=== PATIENT | male | born 1950 | race Caucasian/White ===

== ENCOUNTER 2017-12-02 20:03 | Inpatient (IN) | payer BC, OTHER ==
[~2017-12-02] VITALS: Ht 167.6 cm; Wt 83.9 kg
[2017-12-02] MEDS: CITRIC ACID/SODIUM CITRATE SOLN 15ML UDC PO SCH ×2 (13:00→17:00)
[~2017-12-02 20:03] MED LIST: INSULIN GLARGINE UD 100 UNITS/ML SYR SUBCUT SCH
[2017-12-02 21:00] LABS: BASOPHILS % 0.5 % (0.0-2.0); LYMPHOCYTES % 8.5 % (20.0-50.0); MEAN CORPUSCULAR HEMOGLOBIN 30.9 pg (28.0-32.0); MEAN CORPUSCULAR VOLUME 95.3 fL (80.0-94.0); MEAN PLATELET VOLUME 9.9 fl (7.4-10.4); MONOCYTES % 5.7 % (2.0-8.0); NEUTROPHILS % 84.3 % (40.0-76.0); PLATELET 196 x1000/uL (130-400); RED CELL DISTRIBUTION WIDTH 15.7 % (11.6-14.6)
[2017-12-02 21:06] LABS: CHLORIDE 112 mEq/L (98-107)
[2017-12-02 21:08] LABS: HEMOGLOBIN. 6.8 g/dL (14.0-18.0)
[2017-12-02 21:09] LABS: HEMATOCRIT. 20.9 % (42.0-52.0)
[2017-12-02] MEDS ORDERED: ENALAPRIL 2.5MG/2ML VIAL 2ML IV ONE (21:15)
[2017-12-02] MEDS ORDERED: FUROSEMIDE 40MG/4ML VIAL IVP ONE (21:15)
[2017-12-02 21:37] LABS: BG BASE EXCESS -8.7 mmol/L (-2.0-2.0); BG BILEVEL POS AIRWAY PRESSURE 15/5; BG CARBOXYHEMOGLOBIN 0.6 % (0.5-1.5); BG DEOXYHEMOGLOBIN 1.3 % (0.0-5.0); BG FRACTION INSPIRED OXYGEN 40; BG HCO3 ACT 16.6 mmol/L (22.0-26.0); BG METHEMOGLOBIN 0.4 % (0.0-1.5); BG OXYGEN SATURATION 98.7 % (92.0-98.5); BG OXYHEMOGLOBIN 97.7 % (94.0-97.0); BG PCO2 32.9 mmHg (35.0-45.0); BG SAMPLE SITE RIGHT RADIAL; BG TOTAL HEMOGLOBIN 6.9 g/dL (12.0-18.0); BG VENT MODE MASK - BIPAP; BG VENT RATE 20 set
[2017-12-02] MEDS ORDERED: AMLODIPINE 10MG TABLET PO SCH (22:30)
[2017-12-02] MEDS ORDERED: GUAIFENESIN 200MG/10ML SUGAR FREE UDC PO PRN (22:30)
[2017-12-02] MEDS ORDERED: DIPHENHYDRAMINE 50MG/ML VIAL IV PRN (22:30)
[2017-12-02] MEDS ORDERED: DOCUSATE SODIUM 100MG CAPSULE PO PRN (22:30)
[2017-12-02] MEDS ORDERED: MORPHINE SULFATE 4 MG/ML CPJ (NOT FOR IM USE) IV PRN (22:30)
[2017-12-02] MEDS ORDERED: ACETAMINOPHEN 325MG TABLET PO PRN (22:30)
[2017-12-02] MEDS ORDERED: TRAMADOL 50MG TABLET PO PRN (22:30)
[2017-12-02] MEDS ORDERED: NITROGLYCERIN 0.4MG TABLET SL SL PRN (22:30)
[2017-12-02] MEDS ORDERED: DEXTROSE 50% WATER 50ML SYRINGE IV PRN (22:30)
[2017-12-02] MEDS ORDERED: MAGNESIUM/ALUMINUM HYDROXIDE/SIMETHICONE 30ML UDC PO PRN (22:30)
[2017-12-02] MEDS ORDERED: ONDANSETRON HCL 4MG/2ML INJ IV PRN (22:30)
[2017-12-02] MEDS ORDERED: NA PHOS,M-B/NA PHOS,DI-BA ENEMA 118ML PR PRN (22:30)
[2017-12-02] MEDS ORDERED: LORAZEPAM 0.5MG TABLET PO PRN (22:30)
[2017-12-02] MEDS ORDERED: IPRATROPIUM/ALBUTEROL 0.5-3(2.5)MG/3ML NEB INH PRN (22:30)
[2017-12-03] VITALS (32 sets, daily range): BP systolic 126–218; BP diastolic 65–99
[2017-12-03] MEDS ORDERED: SODIUM POLYSTYRENE SULFONATE 15 G/60 ML BOT PO NR (01:00)
[2017-12-03] MEDS ORDERED: AMLODIPINE 10MG TABLET PO NR (01:15)
[2017-12-03 01:50] LABS: FOLIC ACID (FOLATE) SERUM 12.3 ng/mL (>5.38)
[2017-12-03] MEDS: CLONIDINE 0.1MG TABLET PO PRN ×2 (02:57→10:46)
[2017-12-03] MEDS ORDERED: METOLAZONE 10MG TABLET PO NR (05:00)
[2017-12-03] MEDS: HYDRALAZINE HCL 50MG TABLET PO SCH ×3 (05:11→22:51)
[2017-12-03] MEDS: FUROSEMIDE 40MG/4ML VIAL IVP SCH ×2 (05:12→18:00)
[2017-12-03] MEDS: BLOOD SUGAR DIAGNOSTIC STRIP TEST SCH ×4 (07:30→21:00)
[2017-12-03 08:10] LABS: CREATINE KINASE MB FRACTION 5.7 ng/mL (0.5-3.6)
[2017-12-03] MEDS ORDERED: METOPROLOL TARTRATE 25MG TABLET PO SCH (09:00)
[2017-12-03] MEDS: AMLODIPINE 10MG TABLET PO SCH (09:35)
[2017-12-03] MEDS: FOLIC ACID/VITAMIN B COMP W-C TABLET PO SCH (09:35)
[2017-12-03] MEDS: PANTOPRAZOLE SODIUM 40 MG/VIAL IV SCH (09:37)
[2017-12-03] MEDS: INSULIN LISPRO 100 UNITS/ML SUBCUT SCH ×4 (09:40→23:00)
[2017-12-03] MEDS: CITRIC ACID/SODIUM CITRATE SOLN 15ML UDC PO SCH (09:40)
[2017-12-03] MEDS: INSULIN GLARGINE UD 100 UNITS/ML SYR SUBCUT SCH (10:42)
[2017-12-03 11:08] LABS: BG BASE EXCESS -8.8 mmol/L (-2.0-2.0); BG CARBOXYHEMOGLOBIN 0.3 % (0.5-1.5); BG DEOXYHEMOGLOBIN 2.5 % (0.0-5.0); BG FRACTION INSPIRED OXYGEN 28; BG HCO3 ACT 16.3 mmol/L (22.0-26.0); BG METHEMOGLOBIN 0.2 % (0.0-1.5); BG OXYGEN SATURATION 97.5 % (92.0-98.5); BG PCO2 31.8 mmHg (35.0-45.0); BG PH 7.328 (7.350-7.450); BG PO2 115.3 mmHg (75.0-100.0); BG SAMPLE SITE LEFT RADIAL; BG VENT MODE NASAL CANNULA
[2017-12-03] MEDS ORDERED: ASPI-1159 PO (11:40)
[2017-12-03] MEDS ORDERED: DIU2 PO (11:40)
[2017-12-03] MEDS ORDERED: ATEN100T MT (11:40)
[2017-12-03 13:25] LABS: BASOPHILS % 0.7 % (0.0-2.0); EOSINOPHILS % 1.5 % (0.0-5.0); LYMPHOCYTES % 15.5 % (20.0-50.0); MEAN CORPUSCULAR HEMOGLOBIN 31.1 pg (28.0-32.0); MEAN CORPUSCULAR VOLUME 94.8 fL (80.0-94.0); MEAN PLATELET VOLUME 10.4 fl (7.4-10.4); NEUTROPHILS % 73.3 % (40.0-76.0); PLATELET 169 x1000/uL (130-400); RED BLOOD CELL COUNT 2.05 mill/uL (4.7-6.1); RED CELL DISTRIBUTION WIDTH 15.3 % (11.6-14.6)
[2017-12-03 13:29] LABS: HEMOGLOBIN. 6.4 g/dL (14.0-18.0)
[2017-12-03 13:30] LABS: HEMATOCRIT. 19.5 % (42.0-52.0)
[2017-12-03 13:48] LABS: PHOSPHORUS 6.8 mg/dL (2.5-4.9)
[2017-12-03 14:30] LABS: CREATINE KINASE MB FRACTION 4.5 ng/mL (0.5-3.6)
[2017-12-03] MEDS ORDERED: SODIUM BICARBONATE 4% (2.4MEQ) 5ML VIAL IV ONE (14:43)
[2017-12-03] MEDS ORDERED: LIDOCAINE HCL 1% 20ML VIAL (Pyxis) INJ ONE (14:43)
[2017-12-03] MEDS ORDERED: LIDOCAINE HCL/EPINEPHRINE 1%-EPI 1:100,000 20 ML VIAL ONE (14:43)
[2017-12-03] MEDS ORDERED: FENTANYL CITRATE/PF 50MCG/ML 2ML VIAL ONE (14:53)
[2017-12-03 14:59] LABS: INR 1.1; PARTIAL THROMBOPLASTIN TIME 29.1 sec (23.4-31.0); PROTHROMBIN TIME 10.6 sec (9.1-11.1)
[2017-12-03] MEDS ORDERED: FENTANYL CITRATE/PF 50MCG/ML 2ML VIAL IV NR (15:45)
[2017-12-03] MEDS ORDERED: CEFAZOLIN 1000MG PREMIX 50 ML IV NR (16:00)
[2017-12-03] MEDS ORDERED: CLONIDINE 0.2MG TABLET PO PRN (16:30)
[2017-12-03] MEDS ORDERED: CLONIDINE 0.1MG TABLET PO PRN (16:45)
[2017-12-03] MEDS ORDERED: NITROGLYCERIN OINT 1GM/INCH UDPKT TD SCH (18:00)
[2017-12-03] MEDS: NITROGLYCERIN OINT 1GM/INCH UDPKT TD SCH ×2 (19:14→22:07)
[2017-12-03 19:31] LABS: CLARITY URINE CLEAR (CLEAR); COLOR URINE YELLOW (YELLOW); KETONES URINE NEGATIVE (NEGATIVE); LEUKOCYTE ESTERASE URINE NEGATIVE (NEGATIVE); NITRITE URINE NEGATIVE (NEGATIVE); OCCULT BLOOD URINE NEGATIVE (NEGATIVE); PH URINE 5.5 (4.5-8.0); PROTEIN URINE 3+ (NEGATIVE); SPECIFIC GRAVITY URINE 1.012 (1.005-1.030); UROBILINOGEN URINE 0.2 E.U./dL (0.2-1.0)
[2017-12-03] MEDS: METOPROLOL TARTRATE 50MG TABLET PO SCH (22:08)
[2017-12-03] MEDS: ZOLPIDEM TARTRATE 5MG TABLET PO PRN (22:51)
[2017-12-04] VITALS (13 sets, daily range): BP systolic 145–182; BP diastolic 67–98
[2017-12-04] MEDS: NITROGLYCERIN OINT 1GM/INCH UDPKT TD SCH ×6 (00:45→21:36)
[2017-12-04] MEDS: CLONIDINE 0.1MG TABLET PO PRN ×2 (03:22→11:56)
[2017-12-04] MEDS: EPOETIN ALFA 4000UNITS/ML VIAL SUBCUT SCH (03:33)
[2017-12-04] MEDS: FUROSEMIDE 40MG/4ML VIAL IVP SCH ×2 (05:44→17:37)
[2017-12-04] MEDS: HYDRALAZINE HCL 50MG TABLET PO SCH ×3 (05:48→23:25)
[2017-12-04] MEDS: BLOOD SUGAR DIAGNOSTIC STRIP TEST SCH ×4 (06:23→21:00)
[2017-12-04 07:07] LABS: BASOPHILS % 0.5 % (0.0-2.0); EOSINOPHILS % 2.6 % (0.0-5.0); MEAN CORPUSCULAR HEMOGLOBIN 32.1 pg (28.0-32.0); MEAN PLATELET VOLUME 10.2 fl (7.4-10.4); MONOCYTES % 9.6 % (2.0-8.0); NEUTROPHILS % 73.3 % (40.0-76.0); PLATELET 154 x1000/uL (130-400); RED BLOOD CELL COUNT 2.17 mill/uL (4.7-6.1); RED CELL DISTRIBUTION WIDTH 15.1 % (11.6-14.6)
[2017-12-04 07:32] LABS: HEMATOCRIT. 20.2 % (42.0-52.0)
[2017-12-04] MEDS: INSULIN LISPRO 100 UNITS/ML SUBCUT SCH ×4 (08:00→23:26)
[2017-12-04 08:02] LABS: PHOSPHORUS 6.9 mg/dL (2.5-4.9)
[2017-12-04 08:13] LABS: CREATINE KINASE MB FRACTION 3.7 ng/mL (0.5-3.6)
[2017-12-04] MEDS: AMLODIPINE 10MG TABLET PO SCH (09:00)
[2017-12-04] MEDS: PANTOPRAZOLE SODIUM 40 MG/VIAL IV SCH (09:03)
[2017-12-04] MEDS: FOLIC ACID/VITAMIN B COMP W-C TABLET PO SCH (09:05)
[2017-12-04] MEDS: METOPROLOL TARTRATE 50MG TABLET PO SCH ×2 (09:05→21:37)
[2017-12-04] MEDS: INSULIN GLARGINE UD 100 UNITS/ML SYR SUBCUT SCH (11:11)
[2017-12-04 12:36] LABS: HEPATITIS B SURFACE AB < 3.1 mIU/mL
[2017-12-04 12:46] LABS: HEPATITIS B SURFACE ANTIGEN NEGATIVE
[2017-12-04 13:15] LABS: HEPATITIS B CORE AB IGM NEGATIVE
[2017-12-04] MEDS: CALCIUM ACETATE 667MG CAPSULE PO SCH ×2 (13:24→17:35)
[2017-12-04] MEDS: ZOLPIDEM TARTRATE 5MG TABLET PO PRN (21:37)
[2017-12-05] VITALS (10 sets, daily range): BP systolic 159–179; BP diastolic 66–96
[2017-12-05] MEDS: NITROGLYCERIN OINT 1GM/INCH UDPKT TD SCH ×6 (01:07→22:44)
[2017-12-05 05:21] LABS: A/G RATIO 0.9 (0.7-1.7); ALBUMIN 2.4 g/dL (2.9-4.4); ALPHA-1-GLOBULIN 0.2 g/dL (0.0-0.4); ALPHA-2-GLOBULIN 0.6 g/dL (0.4-1.0); BETA GLOBULIN 0.8 g/dL (0.7-1.3); GLOBULIN TOTAL 2.7 g/dL (2.2-3.9); M-SPIKE Not Observed g/dL (Not Observed); TOTAL PROTEIN SERUM 5.1 g/dL (6.0-8.5)
[2017-12-05] MEDS: HYDRALAZINE HCL 50MG TABLET PO SCH ×3 (05:46→21:13)
[2017-12-05] MEDS: FUROSEMIDE 40MG/4ML VIAL IVP SCH ×2 (05:49→17:50)
[2017-12-05] MEDS: BLOOD SUGAR DIAGNOSTIC STRIP TEST SCH ×4 (07:58→21:20)
[2017-12-05 08:21] LABS: BASOPHILS % 0.4 % (0.0-2.0); HEMATOCRIT. 26.1 % (42.0-52.0); LYMPHOCYTES % 9.4 % (20.0-50.0); MEAN CORPUSCULAR HEMOGLOBIN 31.2 pg (28.0-32.0); MEAN CORPUSCULAR VOLUME 92.7 fL (80.0-94.0); MEAN PLATELET VOLUME 10.5 fl (7.4-10.4); NEUTROPHILS % 78.2 % (40.0-76.0); PLATELET 163 x1000/uL (130-400); RED BLOOD CELL COUNT 2.81 mill/uL (4.7-6.1); RED CELL DISTRIBUTION WIDTH 14.9 % (11.6-14.6)
[2017-12-05 08:26] LABS: HEMOGLOBIN. 8.8 g/dL (14.0-18.0)
[2017-12-05] MEDS: METOPROLOL TARTRATE 50MG TABLET PO SCH ×2 (09:26→21:32)
[2017-12-05] MEDS: PANTOPRAZOLE SODIUM 40 MG/VIAL IV SCH (09:26)
[2017-12-05] MEDS: FOLIC ACID/VITAMIN B COMP W-C TABLET PO SCH (09:27)
[2017-12-05] MEDS: CALCIUM ACETATE 667MG CAPSULE PO SCH ×3 (09:27→17:49)
[2017-12-05] MEDS: AMLODIPINE 10MG TABLET PO SCH (09:27)
[2017-12-05] MEDS: INSULIN LISPRO 100 UNITS/ML SUBCUT SCH ×4 (09:29→21:24)
[2017-12-05] MEDS: INSULIN GLARGINE UD 100 UNITS/ML SYR SUBCUT SCH (09:29)
[2017-12-05 10:41] LABS: PHOSPHORUS 5.5 mg/dL (2.5-4.9)
[2017-12-05 10:47] LABS: CREATINE KINASE MB FRACTION 1.8 ng/mL (0.5-3.6)
[2017-12-05] MEDS: EPOETIN ALFA 4000UNITS/ML VIAL SUBCUT SCH (21:14)
[2017-12-05] MEDS: CLONIDINE 0.1MG TABLET PO PRN (22:45)
[2017-12-06] VITALS (12 sets, daily range): BP systolic 146–181; BP diastolic 69–130
[2017-12-06] MEDS: NITROGLYCERIN OINT 1GM/INCH UDPKT TD SCH ×5 (00:45→20:03)
[2017-12-06 05:20] LABS: ALBUMIN URINE 48.5 % (.); ALPHA-1-GLOBULIN URINE 7.1 % (.); ALPHA-2-GLOBULIN URINE 10.6 % (.); BETA GLOBULIN URINE 14.7 % (.); GAMMA GLOBULIN URINE 19.2 % (.); TOTAL PROTEIN RANDOM URINE 413.7 mg/dL (Not Estab.)
[2017-12-06] MEDS: FUROSEMIDE 40MG/4ML VIAL IVP SCH ×2 (06:00→18:31)
[2017-12-06] MEDS: HYDRALAZINE HCL 50MG TABLET PO SCH ×3 (06:00→21:27)
[2017-12-06] MEDS: BLOOD SUGAR DIAGNOSTIC STRIP TEST SCH ×4 (08:00→20:13)
[2017-12-06] MEDS: METOPROLOL TARTRATE 50MG TABLET PO SCH ×3 (08:00→20:10)
[2017-12-06] MEDS: INSULIN LISPRO 100 UNITS/ML SUBCUT SCH ×4 (08:00→20:20)
[2017-12-06] MEDS: AMLODIPINE 10MG TABLET PO SCH ×2 (08:03→10:04)
[2017-12-06] MEDS: FOLIC ACID/VITAMIN B COMP W-C TABLET PO SCH (08:52)
[2017-12-06] MEDS: PANTOPRAZOLE SODIUM 40 MG/VIAL IV SCH (08:52)
[2017-12-06] MEDS: CALCIUM ACETATE 667MG CAPSULE PO SCH ×3 (08:52→18:31)
[2017-12-06] MEDS: INSULIN GLARGINE UD 100 UNITS/ML SYR SUBCUT SCH (10:07)
[2017-12-06] MEDS ORDERED: ATORVASTATIN CALCIUM 10MG TABLET PO SCH (21:00)
[2017-12-07] MEDS ORDERED: FAMOTIDINE 20MG TABLET PO SCH (09:00)
== END 2017-12-06 21:52 | disposition home or self-care (01) | DRG 280 ==
LOC: ER 20:29 → 5EST 22:05 → ENRESERV 23:04 → 5EST 12-03 01:50
PROVIDERS: ADMIT Internal Medicine; ATTEND Internal Medicine
PROC: 5A09457 Assistance with Respiratory Ventilation, 24-96 Consecutive Hours, Continuous Positive Airway Pressure (ICD-10-PCS; 2017-12-02)
PROC: 30233N1 Transfusion of Nonautologous Red Blood Cells into Peripheral Vein, Percutaneous Approach (ICD-10-PCS; principal; 2017-12-03)
PROC: 0JH63XZ Insertion of Tunneled Vascular Access Device into Chest Subcutaneous Tissue and Fascia, Percutaneous Approach (ICD-10-PCS; 2017-12-03)
PROC: 02HV33Z Insertion of Infusion Device into Superior Vena Cava, Percutaneous Approach (ICD-10-PCS; 2017-12-03)
PROC: B5181ZA Fluoroscopy of Superior Vena Cava using Low Osmolar Contrast, Guidance (ICD-10-PCS; 2017-12-03)
PROC: B548ZZA Ultrasonography of Superior Vena Cava, Guidance (ICD-10-PCS; 2017-12-03)
PROC: 5A1D70Z Performance of Urinary Filtration, Intermittent, Less than 6 Hours Per Day (ICD-10-PCS; 2017-12-04)
PROC: 5A1D70Z Performance of Urinary Filtration, Intermittent, Less than 6 Hours Per Day (ICD-10-PCS; 2017-12-05)
DX: I21.4 Non-ST elevation (NSTEMI) myocardial infarction (principal); E43 Unspecified severe protein-calorie malnutrition; J96.01 Acute respiratory failure with hypoxia; N18.6 End stage renal disease; E87.0 Hyperosmolality and hypernatremia; I13.2 Hypertensive heart and chronic kidney disease with heart failure and with stage 5 chronic kidney disease, or end stage renal disease; N17.9 Acute kidney failure, unspecified; E87.2 Acidosis; E87.6 Hypokalemia; D63.8 Anemia in other chronic diseases classified elsewhere; E11.21 Type 2 diabetes mellitus with diabetic nephropathy; E11.22 Type 2 diabetes mellitus with diabetic chronic kidney disease; E11.65 Type 2 diabetes mellitus with hyperglycemia; E83.51 Hypocalcemia; E87.5 Hyperkalemia; E66.01 Morbid (severe) obesity due to excess calories; F32.9 Major depressive disorder, single episode, unspecified; I16.0 Hypertensive urgency; I25.10 Atherosclerotic heart disease of native coronary artery without angina pectoris; I27.20 Pulmonary hypertension, unspecified; I50.9 Heart failure, unspecified; Z79.899 Other long term (current) drug therapy; Z82.49 Family history of ischemic heart disease and other diseases of the circulatory system; Z83.3 Family history of diabetes mellitus; Z91.19 Patient's noncompliance with other medical treatment and regimen; Z68.29 Body mass index [BMI] 29.0-29.9, adult
CPT/HCPCS: 36415; 36558; 36600; 71045; 76770; 76937; 77001; 80048; 80061; 82375; 82550; 82553; 82607; 82728; 82746; 82805; 82962; 83036; 83540; 83550; 83735; 83880; 84100; 84155; 84156; 84165; 84166; 84484; 85379; 86705; 86706; 86803; 86850; 86900; 86920; 87340; 87804; 93005; 93306; 93970; 94660; 96374; 96375; 99291; C1750; C1769; C9113; J0690; J0885; J1642; J1815; J1940; J3010; J3490; J7030; J7050; J7620; P9016

== ENCOUNTER 2018-03-06 19:22 | Inpatient (IN) | payer MEDICARE, OTHER ==
[~2018-03-06] VITALS: Ht 157.5 cm; Wt 74.9 kg
[~2018-03-06 19:22] MED LIST changes: +ASPI-1159 PO; +ATEN100T MT; +DIU2 PO; -INSULIN GLARGINE UD 100 UNITS/ML SYR SUBCUT SCH
[2018-03-06] MEDS ORDERED: METOPROLOL TARTRATE 50MG TABLET PO ONE (21:30)
[2018-03-06] MEDS ORDERED: TRAMADOL 50MG TABLET PO ONE (22:00)
[2018-03-06] MEDS ORDERED: LOSARTAN POTASSIUM 100 MG TABLET PO ONE (22:30)
[2018-03-07] VITALS (56 sets, daily range): BP systolic 65–176; BP diastolic 33–98
[2018-03-07] MEDS ORDERED: CLONIDINE 0.1MG TABLET PO ONE (00:30)
[2018-03-07] MEDS ORDERED: NICARDIPINE 50 MG in SODIUM CHLORIDE 0.9% 230 ML IV STA (01:54)
[2018-03-07] MEDS ORDERED: NICARDIPINE 50 MG in SODIUM CHLORIDE 0.9% 230 ML IV SCH (02:15)
[2018-03-07 02:37] LABS: BASOPHILS % 0.8 % (0.0-2.0); HEMATOCRIT. 33.7 % (42.0-52.0); HEMOGLOBIN. 11.4 g/dL (14.0-18.0); LYMPHOCYTES % 16.6 % (20.0-50.0); MEAN CORPUSCULAR HEMOGLOBIN 31.4 pg (28.0-32.0); MEAN CORPUSCULAR VOLUME 92.4 fL (80.0-94.0); MEAN PLATELET VOLUME 9.6 fl (7.4-10.4); MONOCYTES % 10.5 % (2.0-8.0); NEUTROPHILS % 70.1 % (40.0-76.0); PLATELET 247 x1000/uL (130-400); RED BLOOD CELL COUNT 3.65 mill/uL (4.7-6.1); RED CELL DISTRIBUTION WIDTH 15.4 % (11.6-14.6)
[2018-03-07 02:44] LABS: PARTIAL THROMBOPLASTIN TIME 30.3 sec (23.4-31.0); PROTHROMBIN TIME 10.2 sec (9.1-11.1)
[2018-03-07 02:45] LABS: PHOSPHORUS 3.3 mg/dL (2.5-4.9)
[2018-03-07] MEDS ORDERED: HYDRALAZINE 20MG/ML VIAL IV PRN (03:45)
[2018-03-07] MEDS ORDERED: ONDANSETRON HCL 4MG/2ML INJ IV PRN (03:45)
[2018-03-07] MEDS ORDERED: NICARDIPINE 50 MG in SODIUM CHLORIDE 0.9% 230 ML IV PRN ×2 (03:45→09:30)
[2018-03-07] MEDS ORDERED: HYDROCODONE/APAP 7.5/325MG 1 TAB TABLET PO PRN (03:45)
[2018-03-07] MEDS ORDERED: CLONIDINE 0.1MG TABLET PO PRN (03:45)
[2018-03-07] MEDS ORDERED: MAGNESIUM/ALUMINUM HYDROXIDE/SIMETHICONE 30ML UDC PO PRN (03:45)
[2018-03-07] MEDS ORDERED: DEXTROSE 50% WATER 50ML SYRINGE IV PRN (03:45)
[2018-03-07] MEDS ORDERED: DIPHENHYDRAMINE 50MG/ML VIAL IV PRN (03:45)
[2018-03-07] MEDS ORDERED: ACETAMINOPHEN 325MG TABLET PO PRN (03:45)
[2018-03-07] MEDS: SODIUM CHLORIDE 0.9% INJ 3ML FLUSH IVF SCH ×3 (06:15→22:00)
[2018-03-07] MEDS ORDERED: LOSARTAN POTASSIUM 100 MG TABLET PO SCH (09:00)
[2018-03-07] MEDS: BLOOD SUGAR DIAGNOSTIC STRIP TEST SCH ×4 (09:00→21:00)
[2018-03-07] MEDS: INSULIN LISPRO 100 UNITS/ML SUBCUT SCH ×4 (10:12→21:00)
[2018-03-07] MEDS ORDERED: ATENOLOL 100 MG TABLET PO SCH (10:30)
[2018-03-07] MEDS ORDERED: FUROSEMIDE 40MG TABLET PO SCH (12:45)
[2018-03-07] MEDS: NIFEDIPINE XL 60MG TAB PO SCH ×2 (13:06→21:00)
[2018-03-07] MEDS ORDERED: LOSA100T14 MT (15:14)
[2018-03-07] MEDS ORDERED: METO25TA6 MT (15:14)
[2018-03-07] MEDS ORDERED: ATEN100T MT (15:14)
[2018-03-07] MEDS ORDERED: ATOR10TA69 MT (15:14)
[2018-03-07] MEDS ORDERED: REN800 MT (15:14)
[2018-03-07] MEDS ORDERED: AMLO2.5T45 MT (15:14)
[2018-03-07] MEDS ORDERED: CALC667T5 MT (15:14)
[2018-03-07] MEDS ORDERED: HYDR-4135 MT (19:04)
[2018-03-07] MEDS ORDERED: NEPVIT MT (19:04)
[2018-03-07] MEDS ORDERED: FAMOTIDINE 20MG TABLET PO SCH (21:00)
== END 2018-03-08 | disposition left against medical advice (07) | DRG 304 ==
LOC: ER 19:22 → MICUSO 03-07 01:57 → ENRESERV 03-07 08:04
PROVIDERS: ADMIT Internal Medicine; ATTEND Internal Medicine
PROC: 0HQ0XZZ Repair Scalp Skin, External Approach (ICD-10-PCS; principal; 2018-03-07)
PROC: 5A1D70Z Performance of Urinary Filtration, Intermittent, Less than 6 Hours Per Day (ICD-10-PCS; 2018-03-07)
DX: I16.0 Hypertensive urgency (principal); N18.6 End stage renal disease; N25.81 Secondary hyperparathyroidism of renal origin; I12.0 Hypertensive chronic kidney disease with stage 5 chronic kidney disease or end stage renal disease; D63.8 Anemia in other chronic diseases classified elsewhere; W10.8XXA Fall (on) (from) other stairs and steps, initial encounter; E11.22 Type 2 diabetes mellitus with diabetic chronic kidney disease; I25.10 Atherosclerotic heart disease of native coronary artery without angina pectoris; Z53.21 Procedure and treatment not carried out due to patient leaving prior to being seen by health care provider; M19.90 Unspecified osteoarthritis, unspecified site; S01.01XA Laceration without foreign body of scalp, initial encounter; Z79.82 Long term (current) use of aspirin; Z82.49 Family history of ischemic heart disease and other diseases of the circulatory system; Z83.3 Family history of diabetes mellitus; I25.2 Old myocardial infarction; Z86.73 Personal history of transient ischemic attack (TIA), and cerebral infarction without residual deficits; Z91.19 Patient's noncompliance with other medical treatment and regimen; Z99.2 Dependence on renal dialysis; Y93.89 Activity, other specified; Y92.89 Other specified places as the place of occurrence of the external cause; Y99.8 Other external cause status; Z79.899 Other long term (current) drug therapy
CPT/HCPCS: 36415; 70486; 71045; 80048; 82962; 83735; 84100; 84484; 93005; 96374; 99285; J1815; J2405; J3490; J7050

== ENCOUNTER 2018-04-21 20:57 | Inpatient (IN) | payer MEDICARE, OTHER ==
[~2018-04-21] VITALS: Ht 165.1 cm; Wt 74.4 kg
[~2018-04-21 20:57] MED LIST changes: +AMLO2.5T45 MT; +ATOR10TA69 MT; +CALC667T5 MT; +HYDR-4135 MT; +LOSA100T14 MT; +METO25TA6 MT; +NEPVIT MT; +REN800 MT
[2018-04-21] MEDS ORDERED: NITROGLYCERIN 0.4MG TABLET SL SL ONE (21:15)
[2018-04-21] MEDS ORDERED: NITROGLYCERIN 50MG PREMIX 250 ML IV ONE (21:15)
[2018-04-21] MEDS ORDERED: ONDANSETRON HCL 4MG/2ML INJ IV ONE (21:45)
[2018-04-21 22:50] LABS: BG BASE EXCESS -5.4 mmol/L (-2.0-2.0); BG BILEVEL POS AIRWAY PRESSURE 15/5; BG CARBOXYHEMOGLOBIN 0.4 % (0.5-1.5); BG DEOXYHEMOGLOBIN 2.7 % (0.0-5.0); BG FRACTION INSPIRED OXYGEN 50; BG HCO3 ACT 19.5 mmol/L (22.0-26.0); BG METHEMOGLOBIN 0.1 % (0.0-1.5); BG OXYGEN SATURATION 97.3 % (92.0-98.5); BG OXYHEMOGLOBIN 96.8 % (94.0-97.0); BG PH 7.352 (7.350-7.450); BG PO2 122.5 mmHg (75.0-100.0); BG SAMPLE SITE LEFT RADIAL; BG VENT MODE MASK - BIPAP; BG VENT RATE 16 set
[2018-04-21 23:10] LABS: HEMATOCRIT. 33.4 % (42.0-52.0); HEMOGLOBIN. 11.1 g/dL (14.0-18.0); MEAN CORPUSCULAR VOLUME 93.4 fL (80.0-94.0); MEAN PLATELET VOLUME 9.7 fl (7.4-10.4); PLATELET 291 x1000/uL (130-400); RED BLOOD CELL COUNT 3.57 mill/uL (4.7-6.1); RED CELL DISTRIBUTION WIDTH 15.2 % (11.6-14.6)
[2018-04-21 23:16] LABS: CHLORIDE 104 mEq/L (98-107); INR 1.1; PROTHROMBIN TIME 10.6 sec (9.1-11.1)
[2018-04-21 23:22] LABS: PLATELET ESTIMATE NORMAL
[2018-04-21] MEDS ORDERED: INSULIN REGULAR (HUMULIN R) 300UNITS/3ML SUBCUT NR (23:45)
[2018-04-21] MEDS ORDERED: SODIUM POLYSTYRENE SULFONATE 15 G/60 ML BOT PO NR (23:45)
[2018-04-21] MEDS ORDERED: DEXTROSE 50% WATER 50ML SYRINGE IV NR (23:45)
[2018-04-22] VITALS (18 sets, daily range): BP systolic 145–195; BP diastolic 55–139
[2018-04-22] MEDS ORDERED: NICARDIPINE 40MG/200ML PREMIX 200 ML IV PRN (09:00)
[2018-04-22] MEDS ORDERED: ACETAMINOPHEN 325MG TABLET PO PRN (09:15)
[2018-04-22] MEDS ORDERED: IPRATROPIUM/ALBUTEROL 0.5-3(2.5)MG/3ML NEB HHN PRN (09:15)
[2018-04-22] MEDS ORDERED: ONDANSETRON HCL 4MG/2ML INJ IV PRN (09:15)
[2018-04-22] MEDS ORDERED: DEXTROSE 50% WATER 50ML SYRINGE IV PRN (09:15)
[2018-04-22] MEDS ORDERED: AZITHROMYCIN 500 MG in DEXT 5% WATER 250 ML IV NR (11:45)
[2018-04-22] MEDS ORDERED: NIFEDIPINE XL 60MG TAB PO NR (11:45)
[2018-04-22] MEDS ORDERED: CEFTRIAXONE 1,000 MG in DEXTROSE 5% WATER 50 ML IV NR (11:45)
[2018-04-22] MEDS: BLOOD SUGAR DIAGNOSTIC STRIP TEST SCH ×3 (13:04→21:00)
[2018-04-22] MEDS: INSULIN LISPRO 100 UNITS/ML SUBCUT SCH ×3 (13:20→23:21)
[2018-04-22] MEDS: HYDRALAZINE HCL 100MG TABLET PO SCH ×2 (15:09→22:00)
[2018-04-22] MEDS ORDERED: NICARDIPINE 50 MG in SODIUM CHLORIDE 0.9% 230 ML IV PRN (15:45)
[2018-04-22] MEDS: NIFEDIPINE XL 60MG TAB PO SCH (21:00)
[2018-04-23] VITALS (17 sets, daily range): BP systolic 135–166; BP diastolic 46–78
[2018-04-23] MEDS: BLOOD SUGAR DIAGNOSTIC STRIP TEST SCH (06:33)
[2018-04-23] MEDS: INSULIN LISPRO 100 UNITS/ML SUBCUT SCH (06:33)
[2018-04-23] MEDS: HYDRALAZINE HCL 100MG TABLET PO SCH (06:52)
[2018-04-23 07:52] LABS: BASOPHILS % 0.9 % (0.0-2.0); EOSINOPHILS % 2.2 % (0.0-5.0); HEMATOCRIT. 30.4 % (42.0-52.0); HEMOGLOBIN. 10.2 g/dL (14.0-18.0); LYMPHOCYTES % 13.2 % (20.0-50.0); MEAN CORPUSCULAR HEMOGLOBIN 31.4 pg (28.0-32.0); MEAN CORPUSCULAR VOLUME 93.5 fL (80.0-94.0); MEAN PLATELET VOLUME 9.4 fl (7.4-10.4); NEUTROPHILS % 73.7 % (40.0-76.0); PLATELET 294 x1000/uL (130-400); RED BLOOD CELL COUNT 3.25 mill/uL (4.7-6.1); RED CELL DISTRIBUTION WIDTH 15.2 % (11.6-14.6)
[2018-04-23] MEDS: NIFEDIPINE XL 60MG TAB PO SCH (09:00)
[2018-04-23] MEDS ORDERED: AZITHROMYCIN 500 MG in DEXT 5% WATER 250 ML IV SCH (09:00)
[2018-04-23] MEDS ORDERED: CEFTRIAXONE 1,000 MG in DEXTROSE 5% WATER 50 ML IV SCH (12:00)
== END 2018-04-23 12:52 | disposition left against medical advice (07) | DRG 871 ==
LOC: ER 20:57 → UNDOADMIN 22:28 → CVICU 22:28 → EDBEDREQTM 22:33 → EDBEDREQ 22:33 → CANRESERV 04-22 12:00 → ENRESERV 04-22 12:00 → CVICU 04-22 14:33
PROVIDERS: ADMIT Internal Medicine; ATTEND Internal Medicine
PROC: 5A09357 Assistance with Respiratory Ventilation, Less than 24 Consecutive Hours, Continuous Positive Airway Pressure (ICD-10-PCS; 2018-04-21)
PROC: 5A1D70Z Performance of Urinary Filtration, Intermittent, Less than 6 Hours Per Day (ICD-10-PCS; principal; 2018-04-22)
DX: A41.9 Sepsis, unspecified organism (principal); J96.00 Acute respiratory failure, unspecified whether with hypoxia or hypercapnia; J18.9 Pneumonia, unspecified organism; N18.6 End stage renal disease; E87.1 Hypo-osmolality and hyponatremia; I12.0 Hypertensive chronic kidney disease with stage 5 chronic kidney disease or end stage renal disease; E87.2 Acidosis; N17.9 Acute kidney failure, unspecified; D63.8 Anemia in other chronic diseases classified elsewhere; I16.0 Hypertensive urgency; E87.5 Hyperkalemia; E78.5 Hyperlipidemia, unspecified; E11.22 Type 2 diabetes mellitus with diabetic chronic kidney disease; Z53.21 Procedure and treatment not carried out due to patient leaving prior to being seen by health care provider; Z99.2 Dependence on renal dialysis
CPT/HCPCS: 36415; 36600; 71045; 80048; 82375; 82805; 82962; 83605; 83880; 84132; 84484; 93005; 93970; 94660; 96365; 96375; 97162; 99291; J0456; J0696; J1815; J3490; J7060; J7620